=== PATIENT | female | born 1985 | race Caucasian/White ===

== ENCOUNTER 2022-09-19 14:50 | Outpatient (REF) | payer OTHER, SELFPAY ==
[2022-09-19 15:38] LABS: MANUAL DIFF FLAG NO
[2022-09-19 16:01] LABS: Basophils Percent Auto 0.4 % (0-2); Eosinophils Absolute Auto 0.1 X10*3/uL (0.0-0.4); Eosinophils Percent Auto 1.3 % (0-4); Hematocrit 33.4 % (37.0-47.0); Hemoglobin 10.2 g/dl (12.0-16.0); Imm Gran Abs Auto 0.01 X10*3/uL (0.00-0.03); Imm Gran Pct Auto 0.1 % (0.0-0.4); Lymphocytes Absolute Auto 1.7 X10*3/uL (1.2-4.9); Lymphocytes Percent Auto 24.2 % (20-40); Mean Corpuscular HGB Conc 30.5 g/dl (31.0-35.0); Mean Corpuscular Hemoglobin 23.6 pg (27.0-33.0); Mean Corpuscular Volume 77.3 fL (80.0-98.0); Mean Platelet Volume 10.6 fL (9.4-12.3); Monocytes Absolute Auto 0.5 X10*3/uL (0.1-1.2); Monocytes Percent Auto 7.3 % (2-11); Neutrophils Absolute Auto 4.6 x10*3/uL (2.0-8.3); Neutrophils Percent Auto 66.7 % (45-73); Platelet Count 241 X10*3/uL (160-400); Red Blood Count 4.32 X10*6/uL (4.20-5.50); Red Cell Distribution Width 15.9 % (11.0-16.0); White Blood Count 6.9 X10*3/uL (4.8-10.8)
[2022-09-19 16:50] LABS: Alanine Aminotransferase 15 U/L (0-31); Albumin Level 3.9 g/dL (3.5-5.0); Alkaline Phosphatase 79 U/L (39-117); Anion Gap 11 (12-20); Aspartate Amino Transferase 17 U/L (5-31); Bilirubin Total 0.1 mg/dL (0.0-1.0); Blood Urea Nitrogen 14 mg/dL (9-16); Calcium 8.8 mg/dL (8.4-10.2); Carbon Dioxide 28 mmol/L (22-29); Chloride 104 mmol/L (96-108); Estimated Glomerular Filt Rate > 60; Glucose Random 114 mg/dL (60-115); Potassium 3.7 mmol/L (3.3-5.1); Sodium 139 mmol/L (135-145); Total Protein 7.3 g/dL (6.5-8.0)
[2022-09-19 16:55] LABS: HCG Quantitative < 2 mIU/mL
== END 2022-09-19 14:51 | disposition home or self-care (01) ==
LOC: HO.LAB 14:50
PROVIDERS: PCP Internal Medicine; Visit Provider Physician Assistant
DX: R10.9 Unspecified abdominal pain (principal); K58.9 Irritable bowel syndrome, unspecified; R11.0 Nausea; K21.9 Gastro-esophageal reflux disease without esophagitis; K29.80 Duodenitis without bleeding; B96.81 Helicobacter pylori [H. pylori] as the cause of diseases classified elsewhere
CPT/HCPCS: 36415; 80053; 84702; 85025; 99202

== ENCOUNTER 2022-09-19 14:50 | Outpatient (AMB) | payer OTHER, SELFPAY ==
--- NOTE | 2022-09-19 14:56 | A.OFFVIS_ITS ---
Intake Vital Signs 09/19/22 14:58 Height 5 ft 3 in Weight 183 lb BMI 32.4 BP 151/66 H Blood Pressure Location Rt brachial Position Sitting Pulse 81 Intake Visit Reasons: GERD/chronic cough Intake Note: Patient new consult for GERD. Patient cc: abdominal pain, GERD with burning sensation, no appetite and the food smell bad for her and a lot of head pressure. Stereotype Caster Required: No Accompanied by: Self / Same As Patient Allergies No Known Allergies Allergy (Verified 09/19/22 14:54) HPI HPI Comments History of Present Illness Details A 37-year-old female referred with GERD x 2 years burning- he in the [facility], chronic headaches (follows with PCP) Treated x 2 for H.pylori-continues with heartburn-omeprazole 40 mg- she does not smoke or drink alcohol. She is unable to relate symptoms to anything specific-occasional nausea No respiratory or cardiac issues She has no vomiting, hematemesis, hematochezia fever or chills PFS Social History (Updated 09/20/22 @ 09:22 by Shabnam Qureshi PA-C) Household Members: Family Household Members Other:: Spouse, 4 children Alcohol intake: never Patient Tobacco Use Status: Never used Tobacco Use of substances other than those prescribed or required for medical reasons: No Current occupational status: unemployed Review of Systems Const All systems reviewed & are unremarkable except as noted in HPI and below Denies chills, Reports fatigue, Denies fever(s), Reports headache(s) and Denies weight loss ENT Reports headache(s) Card Denies chest pain and Denies dyspnea Resp Denies dyspnea GI Denies abdominal pain, Denies change in bowel habits, Reports heartburn, Denies nausea and Denies vomiting Neuro Reports headache(s) Endo Reports fatigue Physical Exam Vital Signs: Last Vital Signs Pulse 81 09/19/22 14:58 BP 151/66 H 09/19/22 14:58 BMI result Body Mass Index 32.4 Const General: cooperative, healthy appearing, comfortable and no acute distress Orientation/consciousness: patient oriented x3 Limitations: no limitations Eyes Sclerae: sclerae normal Cardio Rate: regular rate Rhythm: regular rhythm Heart sounds: S1 normal heart sound present and S2 normal heart sound present GI Palpation (GI): Soft to palpation and nontender Auscultation: normal bowel sounds Skin General skin exam: no rashes or lesions noted Neuro General: patient oriented x3 Extrem General: Yes full ROM Psych Appearance: grossly normal and well kempt Speech and movement: Clear speech present Affect: Labile affect present Attitude: cooperative Thought content: Normal thought content present Results Reviewed Results Reviewed: No labs Assessment & Plan Assessment & Plan (1) Acid reflux: Comment: Baseline labs Continue PPI give trial sucralfate EGD r/o pud, nonulcer dyspepsia, esophagitis, other endoscopic findings to account for her symptoms To scheduling/time Barium swallow-will await findings Code(s): K21.9 - Gastro-esophageal reflux disease without esophagitis Plan: EGD (2) H. pylori duodenitis: Comment: Treated x2, Code(s): K29.80 - Duodenitis without bleeding; B96.81 - Helicobacter pylori [H. pylori] as the cause of diseases classified elsewhere Plan: EGD Plan EGD Barium swallow Labs Orders: Orders EDG - GI Use Only 09/19/22 B96.81 - Helicobacter pylori [H. pylori] as the cause of diseases classified elsewhere, K21.9 - Gastro-esophageal reflux disease without esophagitis, K29.80 - Duodenitis without bleeding FL barium swallow 09/19/22 B96.81 - Helicobacter pylori [H. pylori] as the cause of diseases classified elsewhere, K21.9 - Gastro-esophageal reflux disease without esophagitis, K29.80 - Duodenitis without bleeding HCG Quantitative 09/19/22 R11.0 - Nausea Complete Blood Count Auto Diff 09/19/22 R10.9 - Unspecified abdominal pain Comprehensive Met. Panel 09/19/22 K58.9 - Irritable bowel syndrome without diarrhea Medications: New sucralfate 1 g PO QIDACHS 21 days 90 tabs 0RF Patient Instructions: 37-year-old female acid reflux, with water brash despite omeprazole 40 mg daily. She has been treated for H pylori as well Reviewed reflux precautions, avoidance of culprits. Continue omeprazole 40 mg daily she will give trial to sucralfate in meanwhile. Schedule EGD to assess further. She will have labs drawn to include CBC CMP as well as an hCG Encouraged to call with questions or concerns Coding Level of Care Code New Pt Level 3 (44608) Diagnoses Acid reflux K21.9 H. pylori duodenitis K29.80; B96.81 Time Spent (min) 30
[2022-09-19 14:58] VITALS: BP 151/66; PULSE 81; BMI 32.4
== END 2022-09-19 15:38 | disposition home or self-care (01) ==
PROVIDERS: PCP Internal Medicine; Visit Provider Physician Assistant
DX: K21.9 Gastro-esophageal reflux disease without esophagitis (principal); K29.80 Duodenitis without bleeding; B96.81 Helicobacter pylori [H. pylori] as the cause of diseases classified elsewhere
CPT/HCPCS: 99203

== ENCOUNTER 2022-10-28 09:48 | Day surgery (SDC) | payer OTHER, SELFPAY ==
[2022-10-25 12:16] VITALS: BMI 32.4
--- NOTE | 2022-10-27 12:11 | P.CONAN_ITS ---
Documented by User: Bailee Kowalski NP 10/27/22 12:12 HPI - Anesthesia Eval Consult details Narrative: 37yo F for Upper Endoscopy PMFSH Active Problems Active Problems: All Active Problems (Updated 09/20/22 @ 11:13 by Shabnam Qureshi PA-C) Abdominal pain (Acute) H. pylori duodenitis (Acute) Acid reflux (Acute) Social History Social History Household Members: Family Household Members Other:: Spouse, 4 children Alcohol intake: never Patient Tobacco Use Status: Never used Tobacco Are you DNR?: No Advance Directives: No Advance Directives Information Provided: Yes Current occupational status: unemployed Meds Allergies Allergy/AdvReac Type Severity Reaction Status Date / Time sertraline AdvReac Heartburn Verified 10/28/22 10:03 Home Medications Medication Instructions Recorded Confirmed Last Taken Type ibuprofen 600 mg tablet 600 mg PO Q8H PRN 09/19/22 Unknown History omeprazole 40 mg capsule,delayed 40 mg PO DAILY 09/19/22 Unknown History release sertraline 100 mg tablet 100 mg PO DAILY 09/19/22 Unknown History Exam Exam Date and Time: October 27, 2022 1211 Height,Weight and Vital Signs: Height 5 ft 3 in Weight 83.007 kg Pertinent Lab Results Pertinent Lab Results: Laboratory Tests 09/19/22 15:36 WBC 6.9 Hgb 10.2 L Hct 33.4 L Plt Count 241 Sodium 139 Potassium 3.7 Chloride 104 Carbon Dioxide 28 BUN 14 Creatinine 0.61 Assessment and Plan Assessment Anesthesia Assessment: Chart Reviewed Documented by User: Marion Haas MD 10/28/22 11:45 [facility] Active Problems Active Problems: All Active Problems (Updated 10/28/22 @ 11:13 by Marion Haas MD) Abdominal pain (Acute) H. pylori duodenitis (Acute) Acid reflux (Acute) Anxiety/Depression GERD Neck pain when abdominal pain from acid reflux Increased BMI Family History Family history of problems with anesthesia: No Surgical History History of Problems with Anesthesia: No Social History Social History Household Members: Family Household Members Other:: Spouse, 4 children Alcohol intake: never Patient Tobacco Use Status: Never used Tobacco Are you DNR?: No Advance Directives: No Advance Directives Information Provided: Yes Current occupational status: unemployed Meds Allergies Allergy/AdvReac Type Severity Reaction Status Date / Time sertraline AdvReac Heartburn Verified 10/28/22 10:03 Home Medications Medication Instructions Recorded Confirmed Last Taken Type ibuprofen 600 mg tablet 600 mg PO Q8H PRN 09/19/22 Unknown History omeprazole 40 mg capsule,delayed 40 mg PO DAILY 09/19/22 Unknown History release sertraline 100 mg tablet 100 mg PO DAILY 09/19/22 Unknown History Exam Height,Weight and Vital Signs: Height 5 ft 3 in Weight 83.007 kg Vital Signs Temp Pulse Resp BP Pulse Ox O2 Del Method 10/28/22 10:15 98.4 F 78 18 113/72 99 Room Air Pertinent Lab Results Pertinent Lab Results: Laboratory Tests 09/19/22 15:36 WBC 6.9 Hgb 10.2 L Hct 33.4 L Plt Count 241 Sodium 139 Potassium 3.7 Chloride 104 Carbon Dioxide 28 BUN 14 Creatinine 0.61 Lab Results 10/28/22 Range/Units 10:03 Urine Test NEGATIVE (NEGATIVE) Airway Mallampati Class: II TM Dist: >3cm Neck ROM: Full Loose/Missing/Broken Teeth: No (Denies broken, loose, missing teeth) Heart: RRR Lungs: CTAB Assessment and Plan Assessment Anesthesia Assessment: Anesthesia Plan Discussed Final Anesthetic Review Family History of Problems with Anesthesia: No History of Problems with Anesthesia: No NPO: Yes ASA Class: II Final Preanesthetic Review: No Changes in Pt Med Stat, Meds/Allgs Chart Reviewed, Consent Obtained/Reviewed and Anes Risks/Benef Reviewed Patient Risk: Low Procedure Risk: Low Assessment/Block/Sedation in SS: Assess/Block/Sedation-SS Anesthetic Plan Anesthetic Plan: MAC: Disposition: Standard PACU
[2022-10-28 10:11] LABS: UPreg QC Valid YES; Urine Pregnancy NEGATIVE (NEGATIVE)
[2022-10-28 10:15] VITALS: BP 113/72; PULSE 78; RESP 18; TEMP 36.9; O2SAT 99
[2022-10-28] MEDS: Lactated Ringers 1,000 ML 100 ML IVCONT (10:31)
--- NOTE | 2022-10-28 11:33 | MHC.SHP ---
Pre-Procedural Eval Section A Date of Service: 10/28/22 Section B Chief Complaint: GERD, Duodenitis without bleeding Relevant Family History (Specify if Yes): No Present Medications: see Short Stay Collaborative assessment Medical History: No relevant PMH History of Previous Operations: No relevant previous surgery Allergies: Allergies Allergy/AdvReac Type Severity Reaction Status Date / Time sertraline AdvReac Heartburn Verified 10/28/22 10:03 Review of Systems Review of Systems Comment: 10 point ROS negative except as noted previously Exam Exam Comment: Gen appear: No acute distress HEENT: no icterus Chest: No overt resp distress Abd: soft, nontender, nondistended Psych: Stable affect, answering questions appropriately Neuro: A/Ox3 noted to move all extremities spontaneously Ext: no peripheral edema Plan Diagnosis/Plan: Unchanged I have reviewed the history and physical and performed a pertinent physical examination on my patient. No changes have occurred unless specified. Time Spent With Patient Time: Total time managing care of this patient today ____ minutes.
--- NOTE | 2022-10-28 11:34 | P.OP_ITS ---
Operative Note Operative Note Date of Service: 10/28/22 Narrative: Procedure: Esophagogastroduodenoscopy Endoscopist: Ivon Haywood MD Indication: GERD Anesthesia Provider: Aye Dan CRNA Anesthesia Type: MAC ?? EGD Procedure:?? The procedure, indications, preparation and potential complications were reviewed with the patient, who indicated understanding and gave written informed consent to proceed. A physical exam was performed. The endoscope was introduced through the mouth, and advanced to the second part of duodenum. The mucosa was carefully examined on slow withdrawal of the endoscope. The patient tolerated the procedure well. There were no immediate complications.? ? EGD Findings:? * Esophagus:? Normal mucosa noted in the entire esophagus. The Z line was at 38cm. * Stomach:? Normal mucosa was noted in the stomach. Retroflexion was performed in the fundus. Due to previous hx of H pylori, cold forceps biopsies were taken as per [place] Protocol to r/o gastric intestinal metaplasia. * Duodenum:? Normal mucosa was noted in the whole of the examined duodenum. Cold forceps biopsies were taken from duodenal bulb and second portion of the duodenum to rule out celiac sprue. ? EGD Impressions:? * Normal esophagus * Normal stomach (biopsy) * Normal duodenum (biopsy) ?? Recommendations:?? * Follow biopsy results. Our office will call or send a letter with results within 7-10 days. * If H pylori +, patient will be prescribed eradication therapy followed by test of cure. * Avoid NSAIDs. Above has been reviewed with the patient.
[2022-10-28 12:04] VITALS: BP 106/61; PULSE 81; RESP 16; TEMP 36.6; O2SAT 100
[2022-10-28 12:19] VITALS: BP 123/78; PULSE 75; RESP 20; TEMP 36.6; O2SAT 100
[2022-10-28 12:34] VITALS: BP 138/90; PULSE 74; RESP 20; TEMP 36.6; O2SAT 100
== END 2022-10-28 13:35 | disposition home or self-care (01) ==
PROVIDERS: Nurse Practitioner; PCP Internal Medicine; Visit Provider Internal Medicine
PROC: 0DJ08ZZ Inspection of Upper Intestinal Tract, Via Natural or Artificial Opening Endoscopic (ICD-10-PCS; CPT 43235; principal; 2022-10-28 11:40)
DX: K21.9 Gastro-esophageal reflux disease without esophagitis (principal); B96.81 Helicobacter pylori [H. pylori] as the cause of diseases classified elsewhere; K29.50 Unspecified chronic gastritis without bleeding; Z79.1 Long term (current) use of non-steroidal anti-inflammatories (NSAID); Z79.899 Other long term (current) drug therapy; Z88.8 Allergy status to other drugs, medicaments and biological substances
CPT/HCPCS: 43239; 81025; 88305; 88342; J2250

== ENCOUNTER → 2022-10-28 09:48 | Outpatient (BNV) | payer OTHER, SELFPAY | PROVIDERS: PCP Internal Medicine; Visit Provider Internal Medicine | DX: K21.9 Gastro-esophageal reflux disease without esophagitis (principal) | CPT/HCPCS: 43239 ==

== ENCOUNTER 2022-11-30 13:47 | Outpatient (AMB) | payer OTHER, SELFPAY ==
--- NOTE | 2022-11-30 13:54 | A.OFFVIS_ITS ---
Intake Vital Signs 11/30/22 13:56 Height 5 ft 2 in Weight 181 lb BMI 33.1 BP 118/74 Blood Pressure Location Lt brachial Position Sitting Pulse 79 Intake Visit Reasons: s/p egd Intake Note: Patient follow up for EGD results. Patient cc: abdominal pain on and off and denies any other GI issues. 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 Reviewed procedure report, pathology and recommendations Appetite is so-so, however she is no weight loss, no nausea or vomiting She complains today of neck pain headaches and shoulder discomfort-symptoms have been for nearly year. She does follow with her PCP. No fever or chills PFSH Surgical History History of esophagogastroduodenoscopy (EGD) Social History Household Members: Family Household Members Other:: Spouse, 4 children Alcohol intake: never Patient Tobacco Use Status: Never used Tobacco Current occupational status: unemployed Physical Exam Vital Signs: Last Vital Signs Pulse 79 11/30/22 13:56 BP 118/74 11/30/22 13:56 BMI result Body Mass Index 33.1 Const General: cooperative, healthy appearing, comfortable and no acute distress Orientation/consciousness: patient oriented x3 Limitations: no limitations Neck Neck: Yes full ROM Resp Effort & Inspection: normal respiratory effort and able to speak in complete sentences Skin General skin exam: no rashes or lesions noted Neuro General: patient oriented x3 Extrem General: Yes full ROM Psych Appearance: grossly normal and well kempt Mental Status: mental status grossly normal Speech and movement: Clear speech present Affect: Labile affect present Attitude: cooperative Thought content: Normal thought content present Results Reviewed Results Reviewed: EGD Findings:? * Esophagus:? Normal mucosa noted in the entire esophagus. The Z line was at 38cm. * Stomach:? Normal mucosa was noted in the stomach. Retroflexion was performed in the fundus. Due to previous hx of H pylori, cold forceps biopsies were taken as per [place] Protocol to r/o gastric intestinal metaplasia. * Duodenum:? Normal mucosa was noted in the whole of the examined duodenum. Cold forceps biopsies were taken from duodenal bulb and second portion of the duodenum to rule out celiac sprue. ? EGD Impressions:? * Normal esophagus * Normal stomach (biopsy) * Normal duodenum (biopsy)?? Recommendations:?? * Follow biopsy results. Our office will call or send a letter with results within 7-10 days. * If H pylori +, patient will be prescribed eradication therapy followed by test of cure. * Avoid NSAIDs. Name: Meka Avendaño Age/Sex: 37/F Attending: Ivon Haywood MD : 1985 Submitted by: Ivon Haywood MD Copies to: LISA DELUNA MD MR #: [id number] Status: [facility] Collected: 10/28/22 Location: [facility] Received: 10/28/22 Diagnosis A. Duodenum, biopsy: Duodenal mucosa within normal limits; preserved villous architecture and no increased intraepithelial lymphocytes seen. B. Stomach, antrum of greater curvature, biopsy: Gastric antral mucosa with moderate chronic, focally active gastritis and numerous Helicobacter pylori organisms; negative for intestinal metaplasia and dysplasia. C. Stomach, antrum of lesser curvature, biopsy: Gastric antral mucosa with moderate chronic active gastritis and numerous Helicobacter pylori organisms; negative for intestinal metaplasia and dysplasia. D. Stomach, incisura, biopsy: Gastric antral mucosa with moderate chronic active gastritis and numerous Helicobacter pylori organisms; negative for intestinal metaplasia and dysplasia. E. Stomach, body of greater curvature, biopsy: Gastric body mucosa with mild chronic, focally active gastritis and few Helicobacter pylori organisms identified; negative for intestinal metaplasia and dysplasia. F. Stomach, body of lesser curvature, biopsy: Gastric body mucosa with mild chronic inactive gastritis and few Helicobacter pylori organisms identified; negative for intestinal metaplasia and dysplasia. Clinical History Pre-Op Dx: GERD Post-Op Dx: Normal Microscopic Description Microscopic sections reviewed. Material Received A. Duodenum B. Antrum greater curvature C. Antrum lesser curvature D. Incisura E. Body of greater curvature F. Body lesser curvature Gross Description Received in parts. Patient: Meka Avendaño Age/Sex: 37/F MR#: [id number] Page 1 of 2 Assessment & Plan Assessment & Plan (1) H. pylori duodenitis: Comment: EGD-pathology Reviewed treatment course, answered questions to her satisfaction questioning while on antibiotics - Avoid , taking tetracycline- Wants to get next year-this course of treatment will not effect the future Currently normal menses Code(s): K29.80 - Duodenitis without bleeding; B96.81 - Helicobacter pylori [H. pylori] as the cause of diseases classified elsewhere Plan: Treat H pylori quadruple therapy (2) Chronic pain: Comment: Chronic neck , shoulder pain intermittent headaches Full ROM -neck Code(s): G89.29 - Other chronic pain Plan Follow-up PCP no GI issues RTC 6 weeks NANCIE Medications: New metronidazole 250 mg PO QID 14 days 56 tabs 0RF omeprazole 20 mg PO BID 14 days PRN 28 caps 0RF h.pylori tetracycline 500 mg PO Q6H 14 days 56 caps 0RF bismuth subsalicylate (Bismuth) 2 tabs PO QID 14 days 112 tabs 0RF Patient Instructions: Quadruple therapy NANCIE , 6 weeks Information sheet given-no antibiotics or PPI for 2 weeks prior to next appointment as well NPO for 1 hour Coding Level of Care Code Est Pt Level 3 (35022) Diagnoses H. pylori duodenitis K29.80; B96.81 Chronic pain G89.29 Time Spent (min) 30
[2022-11-30 13:56] VITALS: BP 118/74; PULSE 79; BMI 33.1
== END 2022-11-30 16:00 | disposition home or self-care (01) ==
PROVIDERS: PCP Internal Medicine; Visit Provider Physician Assistant
DX: K29.80 Duodenitis without bleeding (principal); B96.81 Helicobacter pylori [H. pylori] as the cause of diseases classified elsewhere; G89.29 Other chronic pain
CPT/HCPCS: 99213

== ENCOUNTER → 2022-11-30 13:47 | Outpatient (BNVA) | payer OTHER, SELFPAY | PROVIDERS: PCP Internal Medicine; Visit Provider Physician Assistant | DX: K29.80 Duodenitis without bleeding (principal); B96.81 Helicobacter pylori [H. pylori] as the cause of diseases classified elsewhere; G89.29 Other chronic pain | CPT/HCPCS: 99212 ==

== ENCOUNTER 2022-12-19 10:34 | Outpatient (REF) | payer OTHER, SELFPAY ==
--- NOTE | ~2022-12-19 | FL_ITS ---
EXAMINATION: FL BARIUM SWALLOW COMPARISON: None TECHNIQUE: Fluoroscopic air contrast upper GI examination was performed utilizing standard techniques with thin and thick barium and effervescent granules. Numerous spot images were obtained. In addition, several fluoroscopic image hold cine runs were obtained. FINDINGS: Lateral cine images of the oropharynx and hypopharynx demonstrate normal swallow mechanism with normal epiglottic inversion and soft palate elevation. No tracheal penetration, glottic or subglottic aspiration identified. No nasopharyngeal reflux present. Hypopharyngeal structures appear normal without evidence of mass or diverticulum. There was no significant cricopharyngeal achalasia. Dual and single contrast images of the esophagus demonstrate normal caliber, contour, and mucosal pattern. No evidence of stricture, mass, or ulcerations identified. Esophageal peristalsis was normal. A small hiatal hernia is identified. Gastroesophageal reflux is seen up to the level of the sue. Limited images of the upper stomach demonstrate prominence of the rugal folds, likely secondary to underdistention from patient inability to retain the effervescent granule CO2 gas. Cannot definitively exclude gastritis. FLUOROSCOPY TIME: 2 minutes 48 seconds Number of Spot Images: 4 Number of Cine: 8 DOSE AREA PRODUCT: 1285 uGy-m2 (microgray-meter squared) FL/FL barium swallow IMPRESSION: 1. Small hiatal hernia 2. Mild gastroesophageal reflux This procedure was performed by Eddie Richards PA-C, and supervised by Dr. Bunn.
== END 2022-12-19 10:35 | disposition home or self-care (01) ==
LOC: HO.XRAY 10:34
PROVIDERS: PCP Internal Medicine; Visit Provider Physician Assistant
DX: K29.80 Duodenitis without bleeding (principal); K21.9 Gastro-esophageal reflux disease without esophagitis; B96.81 Helicobacter pylori [H. pylori] as the cause of diseases classified elsewhere
CPT/HCPCS: 74220

== ENCOUNTER → 2022-12-19 10:35 | Outpatient (BNV) | payer OTHER, SELFPAY | PROVIDERS: PCP Internal Medicine; Visit Provider Radiology Diagnostic Radiology | DX: K29.80 Duodenitis without bleeding (principal) | CPT/HCPCS: 74246 ==

== ENCOUNTER 2023-01-11 10:08 | Outpatient (REF) | payer OTHER, SELFPAY ==
[2023-01-14 15:07] LABS: H Pylori Breath Test Positive (Negative)
== END 2023-01-11 10:09 | disposition home or self-care (01) ==
LOC: HO.LNP 10:08
PROVIDERS: PCP Internal Medicine; Visit Provider Physician Assistant
DX: Z11.2 Encounter for screening for other bacterial diseases (principal)
CPT/HCPCS: 83013; 99211